=== PATIENT | female | born 1995 | race African-American/Black ===

== ENCOUNTER 2025-03-09 12:09 | Emergency (ER) | payer OTHER ==
[2025-03-09 12:22] VITALS: BP 141/65; PULSE 80; RESP 16; TEMP 98.4; BMI 41.5
[2025-03-09] MEDS ORDERED: IBUPROFEN 600 MG TABLET (FP) PO ONE (13:22)
[2025-03-09] MEDS: IBUPROFEN 600 MG TABLET (FP) PO ONE (13:25)
[2025-03-09] MEDS ORDERED: ACETAMINOPHEN 500 MG TABLET (FP) ONE (15:23)
[2025-03-09] MEDS: ACETAMINOPHEN 500 MG TABLET (FP) PO ONE (15:26)
== END 2025-03-09 15:20 | disposition home or self-care (01) ==
LOC: JERFT 12:09
DX: S93.402A Sprain of unspecified ligament of left ankle, initial encounter (principal); S93.602A Unspecified sprain of left foot, initial encounter; W01.0XXA Fall on same level from slipping, tripping and stumbling without subsequent striking against object, initial encounter
CPT/HCPCS: 73610-TC-LT-FY; 73630-TC-LT; 99283-25